=== PATIENT | male | born 1980 | race Caucasian/White ===

== ENCOUNTER 2016-10-02 09:04 | Emergency (ER) | payer SELFPAY ==
[~2016-10-02] VITALS: Ht 167.6 cm; Wt 68.0 kg
[2016-10-02 09:13] VITALS: BP 162/94
== END 2016-10-02 12:09 | disposition left against medical advice (07) ==
LOC: ER 09:05
DX: R21 Rash and other nonspecific skin eruption (principal); Z53.21 Procedure and treatment not carried out due to patient leaving prior to being seen by health care provider